=== PATIENT | male | born 1970 | race Caucasian/White ===

== ENCOUNTER 2021-10-31 00:36 | Emergency (ER) | payer BC ==
[2021-10-31 01:23] LABS: HEMOGLOBIN 16.9 gm/dl (14.0-17.5); RED BLOOD COUNT 5.02 M/UL (4.20-5.50); WHITE BLOOD COUNT 9.4 K/UL (4.5-11.0)
[2021-10-31 01:44] LABS: BUN/CREATININE RATIO 11 (0-10)
== END 2021-10-31 04:44 | disposition home or self-care (01) ==
LOC: ER1 00:36
PROVIDERS: Family Medicine
DX: R00.2 Palpitations (principal); F17.200 Nicotine dependence, unspecified, uncomplicated
CPT/HCPCS: 80053; 82550; 82553; 83874; 84484; 85025; 93005; 99285